=== PATIENT | female | born 1930 | race Caucasian/White ===

== ENCOUNTER 2017-05-19 08:55 | Outpatient (CLI) | payer MEDICARE, OTHER ==
[2017-05-19 09:54] LABS: ALT (SGPT) 20 U/L (8-55); AST (SGOT) 19 U/L (5-34); Albumin 3.9 g/dL (3.4-4.8); Alkaline Phosphatase 72 U/L (40-150); Anion Gap 13 mmol/L (10-20); BUN (Urea Nitrogen) 14 mg/dL (9.8-20.1); Bilirubin, Total 0.8 mg/dL (0.2-1.2); Calc. Creatinine Clearance 0 mL/min (70-130); Calcium 10.1 mg/dL (7.8-10.44); Carbon Dioxide 26 mmol/L (23-31); Cardiac Risk 3.9 (Less than 4.5); Chloride 105 mmol/L (98-107); Cholesterol 154 mg/dl (< 200 Desired); Estimated GFR-MDRD 53; Globulin 3.4 g/dL (2.4-3.5); Glucose 91 mg/dL (83-110); HDL Cholesterol 39 mg/dL (>60 Neg Risk); Hemoglobin A1c 5.1 % (4.0-6.0); LDL Cholesterol, Calculated 86 mg/dL; Protein, Total 7.3 g/dL (6.0-8.3); Sodium 140 mmol/L (136-145); Triglycerides 144 mg/dL (Less than 150)
[2017-05-19 10:27] LABS: Free T4 (Free Thyroxine) 0.96 ng/dL (0.70-1.48)
[2017-05-19 11:08] LABS: Vitamin D, 25 Hydroxy 77.2 ng/ml (> 30.0)
[2017-05-19 11:48] LABS: Eosinophils 3 % (0-10); Hemoglobin 16.5 g/dL (12.0-16.0); Large Platelets SLIGHT; Lymphocytes 21 % (21-51); MDiff Complete? YES; Mean Corpuscular HGB CONC 31.8 g/dL (32.0-36.0); Mean Corpuscular Hemoglobin 29.3 pg (27.0-31.0); Mean Corpuscular Volume 91.9 fl (81.0-99.0); Monocytes 6 % (0-10); Neutrophil 65 % (42-75); PLT Morphology Comment Appears Adequate; Platelet Count 207 thou/uL (130-400); RBC Distribution Width 12.3 % (11.5-14.5); Reactive Lymphocytes 5 % (0-10); Red Blood Cell (RBC) Count 5.65 mill/uL (4.20-5.40); White Blood Cell (WBC) Count 5.6 thou/uL (4.8-10.8)
== END 2017-05-19 08:56 | disposition home or self-care (01) ==
LOC: MADLABBHPM 08:55
PROVIDERS: ATTEND Family Medicine
DX: N18.3 Chronic kidney disease, stage 3 (moderate) (principal); E78.1 Pure hyperglyceridemia; E55.9 Vitamin D deficiency, unspecified
CPT/HCPCS: 36415; 80053; 80061; 82306; 83036; 84439; 84443; 85007; 85027